=== PATIENT | female | born 1950 | race Caucasian/White ===

== ENCOUNTER 2019-03-15 14:10 | Inpatient (IN) | payer OTHER, SELFPAY ==
[2019-03-15] VITALS (28 sets, daily range): BP systolic 102–119; BP diastolic 54–67; PULSE 78–95; RESP 16–18; TEMP 36.6; O2SAT 94–100
--- NOTE | 2019-03-15 14:30 | ED.GENADUL_ITS ---
Discharge Plan Disposition Patient Disposition: [facility] INPATIENT Condition: Stable Discharge Details Chief Complaint: GI Bleed Clinical Impression: Melena, Acute anemia, Dizziness, Dyspnea on exertion Admit Date/Time: 03/17/19 09:41 Admit Provider: Rafia Siddiqui Attending Provider: Rafia Siddiqui Primary Care Provider: Huy Covarrubias ED Provider: Jade Dhaliwal Discharge Data Discharge Date/Time-TO BE ENTERED AT DEPARTURE: 03/15/19 20:20 Medical Decision Making <Debra Wild MD - Last Filed: 03/29/19 14:21> Mirella Dueñas is a 68-year-old woman who presented to the emergency department with jaw presyncope today, also with black tarry stool. On exam patient is very well and nontoxic appearing. Benign cardiopulmonary exam, benign abdominal exam. Rectal exam shows black solid stool that is Hemoccult positive. Concern for presyncope secondary to anemia versus dehydration versus arrhythmia versus metabolic/lyte derangement versus other. Doubt ACS, PE. Exam/history is not consistent with acute aortic etiology, sepsis, bacterial infectious etiology. Plan for EKG, chest x-ray, screening labs, IV, telemetry. Hemoglobin 11.9. Plan for 4-hour repeat. Pt reports feeling well and in her u [facility] state of health. No lightheadedness or other symptoms, though did have black formed stool with bowel movement in ED. D-dimer with slight elevation after age adjustment, but given low suspicion for PE and more likely etiology of lightheadedness plan to hold CT for now. Pt signed out to Dr. Dhaliwal at time of shift change with repeat Hgb, EKG, reassessment and dispo pending. Medical Records Medical records reviewed: Yes I reviewed the patient's medical records. Imaging Data Radiologic Study: Attestation: I personally reviewed and interpreted this imaging study as follows: My impression: CLINICAL HISTORY: 68 years old, female; Other: Pre-syncope TECHNIQUE: Imaging protocol: XR of the chest, 2 views. COMPARISON: No relevant prior studies available. FINDINGS: Lungs: Unremarkable. No consolidation. Pleural space: Unremarkable. No pleural effusion. No pneumothorax. Heart/Mediastinum: Unremarkable. No cardiomegaly. Bones/joints: Degenerative changes in the spine. Left rib fractures, healed. IMPRESSION: Degenerative changes in the spine. Left rib fractures, healed. Lab Data Lab results reviewed: Yes I reviewed the patient's lab results. Laboratory Tests Range/Units 03/15/19 03/15/19 03/15/19 14:43 14:43 14:43 WBC (4.4-10.8) k/cumm 10.24 RBC (4.00-5.20) m/cumm 3.96 L Hgb (12.0-15.5) g/dL 11.9 L Hct (36.0-46.0) % 36.2 MCV (80-95) fL 91.4 MCH (27.0-33.0) pg 30.1 MCHC (32.0-36.0) g/dL 32.9 RDW (11.7-14.6) % 13.7 Plt Count (130-400) x1000/uL 455 H MPV (8.0-11.0) fL 8.9 PT (9.3-11.0) sec 9.7 INR (0.9-1.1) 1.0 D-Dimer (<500) ng/mlFEU Sodium (136-145) mmol/L 141 Potassium (3.5-5.1) mmol/L 4.4 Chloride (98-107) mmol/L 105 Carbon Dioxide (21.0-32.0) mmol/L 23.3 Anion Gap (3-11) mmol/L 12.7 H BUN (7-18) mg/dL 38 H Creatinine (0.55-1.02) mg/dL 0.64 Estimated GFR/1.73 m2 (mL/min/1.73m2) >= 60.00 Glucose (70-100) mg/dL 95 Calcium (8.5-10.1) mg/dL 9.9 Total Bilirubin (0.2-1.0) mg/dL 0.4 AST (15-37) U/L 11 L ALT (12-78) U/L 24 Alkaline Phosphatase (46-116) U/L 97 Troponin I (0.00-0.06) ng/mL Total Protein (6.4-8.2) g/dL 7.1 Albumin (3.4-5.0) g/dL 3.9 TSH (0.358-3.74) uIU/mL Patient ABO/Rh Antibody Screen Range/Units 03/15/19 03/15/19 03/15/19 14:43 14:43 14:43 WBC (4.4-10.8) k/cumm RBC (4.00-5.20) m/cumm Hgb (12.0-15.5) g/dL Hct (36.0-46.0) % MCV (80-95) fL MCH (27.0-33.0) pg MCHC (32.0-36.0) g/dL RDW (11.7-14.6) % Plt Count (130-400) x1000/uL MPV (8.0-11.0) fL PT (9.3-11.0) sec INR (0.9-1.1) D-Dimer (<500) ng/mlFEU 717 H Sodium (136-145) mmol/L Potassium (3.5-5.1) mmol/L Chloride (98-107) mmol/L Carbon Dioxide (21.0-32.0) mmol/L Anion Gap (3-11) mmol/L BUN (7-18) mg/dL Creatinine (0.55-1.02) mg/dL Estimated GFR/1.73 m2 (mL/min/1.73m2) Glucose (70-100) mg/dL Calcium (8.5-10.1) mg/dL Total Bilirubin (0.2-1.0) mg/dL AST (15-37) U/L ALT (12-78) U/L Alkaline Phosphatase (46-116) U/L Troponin I (0.00-0.06) ng/mL < 0.05 Total Protein (6.4-8.2) g/dL Albumin (3.4-5.0) g/dL TSH (0.358-3.74) uIU/mL 2.21 Patient ABO/Rh O Negative Antibody Screen Negative <Jade Dhaliwal DO - Last Filed: 03/16/19 00:21> 1800 -- Please see Dr. Debra Wild's note for initial presentation, exam and plan. Case endorsed to follow-up on 4-hour hemoglobin and EKG. 1914 --Hemoglobin dropped from 11.9 to 10.1. Patient admitted to feeling weak and fatigued upon going to the bathroom. She is hemodynamically stable. EKG noted a rate of 77, sinus with no acute ST-T wave ischemic changes. Will admit for repeat hemoglobin and likely endoscopy. 1930 --Case discussed with Dr. Siddiqui -accepts patient for admission. Medical Records Medical records reviewed: Yes I reviewed the patient's medical records. Lab Data Lab results reviewed: Yes I reviewed the patient's lab results. Laboratory Tests Range/Units 03/15/19 03/15/19 03/15/19 14:43 14:43 14:43 WBC (4.4-10.8) k/cumm 10.24 RBC (4.00-5.20) m/cumm 3.96 L Hgb (12.0-15.5) g/dL 11.9 L Hct (36.0-46.0) % 36.2 MCV (80-95) fL 91.4 MCH (27.0-33.0) pg 30.1 MCHC (32.0-36.0) g/dL 32.9 RDW (11.7-14.6) % 13.7 Plt Count (130-400) x1000/uL 455 H MPV (8.0-11.0) fL 8.9 PT (9.3-11.0) sec 9.7 INR (0.9-1.1) 1.0 D-Dimer (<500) ng/mlFEU Sodium (136-145) mmol/L 141 Potassium (3.5-5.1) mmol/L 4.4 Chloride (98-107) mmol/L 105 Carbon Dioxide (21.0-32.0) mmol/L 23.3 Anion Gap (3-11) mmol/L 12.7 H BUN (7-18) mg/dL 38 H Creatinine (0.55-1.02) mg/dL 0.64 Estimated GFR/1.73 m2 (mL/min/1.73m2) >= 60.00 Glucose (70-100) mg/dL 95 Calcium (8.5-10.1) mg/dL 9.9 Total Bilirubin (0.2-1.0) mg/dL 0.4 AST (15-37) U/L 11 L ALT (12-78) U/L 24 Alkaline Phosphatase (46-116) U/L 97 Troponin I (0.00-0.06) ng/mL Total Protein (6.4-8.2) g/dL 7.1 Albumin (3.4-5.0) g/dL 3.9 TSH (0.358-3.74) uIU/mL Patient ABO/Rh Antibody Screen Range/Units 03/15/19 03/15/19 03/15/19 14:43 14:43 14:43 WBC (4.4-10.8) k/cumm RBC (4.00-5.20) m/cumm Hgb (12.0-15.5) g/dL Hct (36.0-46.0) % MCV (80-95) fL MCH (27.0-33.0) pg MCHC (32.0-36.0) g/dL RDW (11.7-14.6) % Plt Count (130-400) x1000/uL MPV (8.0-11.0) fL PT (9.3-11.0) sec INR (0.9-1.1) D-Dimer (<500) ng/mlFEU 717 H Sodium (136-145) mmol/L Potassium (3.5-5.1) mmol/L Chloride (98-107) mmol/L Carbon Dioxide (21.0-32.0) mmol/L Anion Gap (3-11) mmol/L BUN (7-18) mg/dL Creatinine (0.55-1.02) mg/dL Estimated GFR/1.73 m2 (mL/min/1.73m2) Glucose (70-100) mg/dL Calcium (8.5-10.1) mg/dL Total Bilirubin (0.2-1.0) mg/dL AST (15-37) U/L ALT (12-78) U/L Alkaline Phosphatase (46-116) U/L Troponin I (0.00-0.06) ng/mL < 0.05 Total Protein (6.4-8.2) g/dL Albumin (3.4-5.0) g/dL TSH (0.358-3.74) uIU/mL 2.21 Patient ABO/Rh O Negative Antibody Screen Negative Range/Units 03/15/19 18:30 WBC (4.4-10.8) k/cumm RBC (4.00-5.20) m/cumm Hgb (12.0-15.5) g/dL 10.1 L Hct (36.0-46.0) % 30.7 L MCV (80-95) fL MCH (27.0-33.0) pg MCHC (32.0-36.0) g/dL RDW (11.7-14.6) % Plt Count (130-400) x1000/uL MPV (8.0-11.0) fL PT (9.3-11.0) sec INR (0.9-1.1) D-Dimer (<500) ng/mlFEU Sodium (136-145) mmol/L Potassium (3.5-5.1) mmol/L Chloride (98-107) mmol/L Carbon Dioxide (21.0-32.0) mmol/L Anion Gap (3-11) mmol/L BUN (7-18) mg/dL Creatinine (0.55-1.02) mg/dL Estimated GFR/1.73 m2 (mL/min/1.73m2) Glucose (70-100) mg/dL Calcium (8.5-10.1) mg/dL Total Bilirubin (0.2-1.0) mg/dL AST (15-37) U/L ALT (12-78) U/L Alkaline Phosphatase (46-116) U/L Troponin I (0.00-0.06) ng/mL Total Protein (6.4-8.2) g/dL Albumin (3.4-5.0) g/dL TSH (0.358-3.74) uIU/mL Patient ABO/Rh Antibody Screen ECG Data Attestation: I personally reviewed and interpreted this ECG (s) as follows: Interpretation: rate of 77, sinus, no acute ST elevation or depression. QTc 459. QRS 92. HPI <Debra Wild MD - Last Filed: 03/29/19 14:21> General Mode of arrival: ambulatory . Date/Time Provider Initiated Documentation: 03/15/19 14:30 . Limitations to Documentation: no limitations . Information obtained by: patient, RN notes reviewed and old records reviewed . HPI Narrative: Mirella Dueñas 68 y/o woman with out reported major medical problems presenting to the emergency department with lightheadedness and black tarry stool. Patient reports that last week she had several episodes of vertigo while lying down. She has not had vertigo in the past. Patient reports that this seems to have resolved, however this morning she felt very lightheaded when changing position from sitting to standing. Patient reports that she had one episode of black tarry stool this morning. No history of similar bowel movements in the past, no recent diarrhea, bowel movements normal up until today. Patient reports that she has been taking aspirin 325 mg daily and meloxicam daily, but did not take either this morning after the bowel movement. Has been eating and drinking as usual. No recent illness. Denies fever, vomiting, shortness of breath, cough, focal numbness or weakness the extremities. Related Data Home Medications Medication Instructions Recorded Confirmed Myrbetriq mg PO 03/15/19 amlodipine [Norvasc] 10 mg PO DAILY 03/15/19 03/15/19 ergocalciferol (vitamin D2) unit DAILY 03/15/19 [Vitamin D2] fluoxetine [Prozac] 60 mg PO DAILY 03/15/19 03/15/19 pantoprazole 40 mg PO BID@0730,1999 #60 tab 03/17/19 sucralfate 1 g PO QID #56 tab 03/17/19 Previous Rx's Medication Instructions Recorded pantoprazole 40 mg PO BID@0730,1999 #60 tab 03/17/19 sucralfate 1 g PO QID #56 tab 03/17/19 Allergies Allergy/AdvReac Type Severity Reaction Status Date / Time No Known Allergies Allergy Unverified 03/15/19 18:11 Review of Systems <Debra Wild MD - Last Filed: 03/29/19 14:21> Review of Systems Constitutional: denies fevers Eyes: denies eye pain ENT: denies facial pain, dental pain, sore throat Cardiovascular: denies chest pain, edema, reports lightheadedness Respiratory: denies SOB, cough GI: denies abdominal pain, vomiting, diarrhea, reports black stool : denies flank pain MSK: denies back pain, neck pain, arthralgias, myalgias Skin: denies rash Neuro: denies headaches, numbness, weakness, reports vertigo last week resolved now for several days PFSH <Debra Wild MD - Last Filed: 03/29/19 14:21> Medical History Hyperlipidemia (Acute) Hypertension (Chronic) Menopausal depression (Acute) Stress incontinence (Acute) Torn meniscus (Acute) Surgical History H/O colonoscopy (Chronic) H/O hysterectomy with oophorectomy (Acute) H/O neck surgery (Acute) History of bilateral carpal tunnel release (Acute) History of cataract surgery (Chronic) S/P right knee arthroscopy (Acute) Family History Father Heart disease Sister Heart disease Hyperlipidemia Mother Non Hodgkin's lymphoma, stage IA Social History Smoking/Tobacco Use Status: Never Alcohol Intake: never Drug use: Never Substance use type: does not use Household members: spouse Number of Children: 3 Do you feel safe at home: Yes Exam <Debra Wild MD - Last Filed: 03/29/19 14:21> Narrative Exam Narrative: Constitutional: well and [id number]-gzmbxiyno, pleasant, conversing normally HENT: head atraumatic/normocephalic/normal inspection, mucous membranes moist Eyes: conjunctiva normal, sclera normal, pupils 3mm b/l Neck: no stridor, normal ROM, trachea midline Chest: normal inspection Resp: normal work of breathing, LCTAB Cardio: normal rate, normal rhythm, no murmur appreciated GI: abdomen soft, non-tender, non-distended, rectal exam with formed stool in vault, hemoccult positive, rectal exam otherwise normal Back: normal inspection, no rash Skin: warm, dry, normal color, no rash Neuro: alert, not altered, grossly non-focal, normal tone Ext: no edema Psych: normal mood, normal affect, normal behavior Sign Out <Debra Wild MD - Last Filed: 03/29/19 14:21> Sign Out Data: Sign Out Comment: Patient signed out to Dr. Dhaliwal at time of shift change with EKG, repeat hemoglobin, reassessment, dispo pending. Last updated by Debra Wild MD at 03/15/19 18:12
[2019-03-15 15:07] LABS: HCT 36.2 % (36.0-46.0); HGB 11.9 g/dL (12.0-15.5); Mean Corp. HGB Concentration 32.9 g/dL (32.0-36.0); Mean Corpuscular Hemoglobin 30.1 pg (27.0-33.0); Mean Corpuscular Volume 91.4 fL (80-95); Mean Platelet Volume 8.9 fL (8.0-11.0); Platelet Count 455 x1000/uL (130-400); RBC 3.96 m/cumm (4.00-5.20); RBC Distribution Width 13.7 % (11.7-14.6); White Blood Cell Count 10.24 k/cumm (4.4-10.8)
[2019-03-15 15:14] LABS: Prothrombin Time 9.7 sec (9.3-11.0)
[2019-03-15 15:29] LABS: ALT 24 U/L (12-78); AST 11 U/L (15-37); Albumin 3.9 g/dL (3.4-5.0); Alkaline Phosphatase 97 U/L (46-116); Anion Gap 12.7 mmol/L (3-11); BUN 38 mg/dL (7-18); Bilirubin, Total 0.4 mg/dL (0.2-1.0); CO2 23.3 mmol/L (21.0-32.0); CREATININE 0.64 mg/dL (0.55-1.02); Calcium 9.9 mg/dL (8.5-10.1); Chloride 105 mmol/L (98-107); Glucose 95 mg/dL (70-100); Potassium 4.4 mmol/L (3.5-5.1); Sodium 141 mmol/L (136-145); Total Protein 7.1 g/dL (6.4-8.2)
--- NOTE | 2019-03-15 15:29 | DI.RAD_ITS ---
SYMPTOM/DIAGNOSIS: PRE SYNCOPE FRONTAL AND LATERAL CHEST: No priors. Heart size and pulmonary vasculature are within normal limits. The lungs are clear. No effusions or pneumothoraces are identified. There are old healed left rib fractures. Degenerative changes are seen in the spine. IMPRESSION: No acute pulmonary process.
[2019-03-15 16:33] LABS: TSH (W/Ref FT4) 2.21 uIU/mL (0.358-3.74)
[2019-03-15 16:35] LABS: Troponin I < 0.05 ng/mL (0.00-0.06)
[2019-03-15 16:46] LABS: D-Dimer 717 ng/mlFEU (<500)
--- NOTE | 2019-03-15 17:26 | DI.VRAD_ITS ---
EXAM: XR Chest, 2 Views EXAM DATE/TIME: 03/15/2019 4:53 PM CLINICAL HISTORY: 68 years old, female; Other: Pre-syncope TECHNIQUE: Imaging protocol: XR of the chest, 2 views. COMPARISON: No relevant prior studies available. FINDINGS: Lungs: Unremarkable. No consolidation. Pleural space: Unremarkable. No pleural effusion. No pneumothorax. Heart/Mediastinum: Unremarkable. No cardiomegaly. Bones/joints: Degenerative changes in the spine. Left rib fractures, healed. IMPRESSION: Degenerative changes in the spine. Left rib fractures, healed. Dictated and Authenticated by: Evelyn Brown MD. Ordering:LOIS Richardson MD
--- NOTE | 2019-03-15 18:00 | NUR.NOTE ---
Addendum entered by Julia Barrera RN 03/15/19 19:38: pt resting in bed, no signs of distress. VSS will continue to monitor Original Note: Nursing Note:
[2019-03-15 18:32] LABS: HCT 30.7 % (36.0-46.0); HGB 10.1 g/dL (12.0-15.5)
--- NOTE | 2019-03-15 19:38 | NUR.NOTE ---
Nursing Note: pt resting in bed, no signs of distress. VSS. pt states that she has had one more black BM since admission to ER
[2019-03-16] VITALS (18 sets, daily range): BP systolic 90–124; BP diastolic 38–72; PULSE 80–97; RESP 16–18; TEMP 36.2–37; O2SAT 93–99
[2019-03-16] MEDS: Normal Saline Flush 10 ML SYR IVP ×2 (04:35→16:45)
[2019-03-16] MEDS: Normal Saline 1,000 ML 1000 ML IV (04:35)
[2019-03-16] MEDS: Pantoprazole 40 MG VIAL IVP ×2 (04:35→16:45)
[2019-03-16 05:06] LABS: HCT 29.4 % (36.0-46.0); HGB 9.6 g/dL (12.0-15.5)
--- NOTE | 2019-03-16 05:16 | HPE_ITS ---
Date of service: 03/16/19 Time of Service: 05:18 Assessment and Plan (1) GI bleed: Current visit: Yes Status: Chronic A\\ 68 year old female with weakness and SOB on exertion x 1 week. Had several black stools yesterday. Hgb has droped from 11.9 on admission to 9.6 P\\ EGD under sedation. If no bleeding from stomach then will prep for Colonoscopy tomorrow Risks, benefits and complications reviewed. Complications include but are not limited to bleeding, pain, perforation, sore throat, injury to the uvula, and adverse reaction to the medications. Questions were entertained and answered to her satisfaction and she wished to proceed. No guarantees were given or implied. Qualifiers: GI bleed type/associated pathology: melena Qualified Code(s): K92.1 - Melena History of Present Illness Narrative: Dizzy spells for about 1week and shortness of breath upon Exertion. yesterday worse when walking her dog. [place] her legs were weak. Had a couple of small black stools. tried to see a PCP, patient is here from [place] was sent to ER. Has never had anything like this before. Has had heart burn off and on lately. Bought Pepcid and has been taking that as needed. Is on ASA daily and Meloxicam. 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 Was taking Ibuprofen prior to beeing switched over to Meloxicam. Review of Systems Constitutional Reports weakness Eyes Denies change in vision Cardiovascular Denies chest pain, Denies chest pain at rest, Denies chest pain with activity, Denies irregular heart rhythm, Denies palpitations, Denies dyspnea and Reports dyspnea on exertion Respiratory Denies cough, Denies dyspnea and Reports dyspnea on exertion Gastrointestinal Reports as per HPI Neurologic Reports weakness Endocrine Denies cold intolerance, Denies heat intolerance and Denies palpitations Hematologic/Lymphatic Denies easy bleeding, Denies easy bruising and Denies lymphadenopathy [facility] Medical History (Updated 03/16/19 @ 06:13 by Rafia Siddiqui MD) Hyperlipidemia (Acute) Hypertension (Chronic) Menopausal depression (Acute) Stress incontinence (Acute) Torn meniscus (Acute) Surgical History (Updated 03/16/19 @ 05:43 by Rafia Siddiqui MD) H/O colonoscopy (Chronic) H/O hysterectomy with oophorectomy (Acute) H/O neck surgery (Acute) History of bilateral carpal tunnel release (Acute) History of cataract surgery (Chronic) S/P right knee arthroscopy (Acute) Family History (Updated 03/16/19 @ 05:46 by Rafia Siddiqui MD) Father Heart disease Sister Heart disease Hyperlipidemia Mother Non Hodgkin's lymphoma, stage IA Social History (Updated 03/16/19 @ 05:47 by Rafia Siddiqui MD) Smoking/Tobacco Use Status: Never Alcohol Intake: never Drug use: Never Substance use type: does not use Household members: spouse Number of Children: 3 Do you feel safe at home: Yes Meds Home Medications Medication Instructions Recorded Confirmed Type amlodipine [Norvasc] 10 mg PO DAILY 03/15/19 03/15/19 History aspirin 325 mg DAILY 03/15/19 03/15/19 History ergocalciferol (vitamin D2) unit DAILY 03/15/19 History [Vitamin D2] fluoxetine [Prozac] 60 mg PO DAILY 03/15/19 03/15/19 History meloxicam 7.5 mg PO DAILY 03/15/19 03/15/19 History mirabegron [Myrbetriq] mg PO 03/15/19 History Allergies Allergy/AdvReac Type Severity Reaction Status Date / Time No Known Allergies Allergy Unverified 03/15/19 18:11 Exam Const General: cooperative, comfortable and no acute distress Orientation: alert and oriented x3 HENMT Head: normocephalic and atraumatic Eyes Pupils: PERRL Resp Effort & Inspection: normal respiratory effort Auscultation: clear to auscultation bilaterally Cardio Rate: regular rate Rhythm: regular rhythm Heart Sounds: no gallops, no murmurs and no rubs GI Inspection: normal to inspection Palpation: soft, no hepatosplenomegaly and nontender Auscultation: normal bowel sounds Results Labs : 03/16/19 04:45 03/15/19 14:43 Laboratory Results - last 24 hr 03/15/19 03/15/19 03/15/19 14:43 14:43 14:43 WBC 10.24 RBC 3.96 L Hgb 11.9 L Hct 36.2 MCV 91.4 MCH 30.1 MCHC 32.9 RDW 13.7 Plt Count 455 H MPV 8.9 PT 9.7 INR 1.0 D-Dimer Sodium 141 Potassium 4.4 Chloride 105 Carbon Dioxide 23.3 Anion Gap 12.7 H BUN 38 H Creatinine 0.64 Estimated GFR/1.73 m2 >= 60.00 Glucose 95 Calcium 9.9 Total Bilirubin 0.4 AST 11 L ALT 24 Alkaline Phosphatase 97 Troponin I Total Protein 7.1 Albumin 3.9 TSH Patient ABO/Rh Antibody Screen 03/15/19 03/15/19 03/15/19 14:43 14:43 14:43 WBC RBC Hgb Hct MCV MCH MCHC RDW Plt Count MPV PT INR D-Dimer 717 H Sodium Potassium Chloride Carbon Dioxide Anion Gap BUN Creatinine Estimated GFR/1.73 m2 Glucose Calcium Total Bilirubin AST ALT Alkaline Phosphatase Troponin I < 0.05 Total Protein Albumin TSH 2.21 Patient ABO/Rh O Negative Antibody Screen Negative 03/15/19 03/16/19 03/16/19 18:30 04:28 04:45 WBC Cancelled RBC Cancelled Hgb 10.1 L Cancelled 9.6 L Hct 30.7 L Cancelled 29.4 L MCV Cancelled MCH Cancelled MCHC Cancelled RDW Cancelled Plt Count Cancelled MPV Cancelled PT INR D-Dimer Sodium Potassium Chloride Carbon Dioxide Anion Gap BUN Creatinine Estimated GFR/1.73 m2 Glucose Calcium Total Bilirubin AST ALT Alkaline Phosphatase Troponin I Total Protein Albumin TSH Patient ABO/Rh Antibody Screen Last Vital Signs Temp 97.3 F L 03/16/19 04:24 Pulse 97 H 03/16/19 04:24 Resp 17 03/16/19 04:24 BP 91/56 L 03/16/19 04:24 Pulse Ox 98 03/16/19 04:24
[2019-03-16] MEDS: Normal Saline 1,000 ML 150 ML IV ×2 (05:44→11:27)
--- NOTE | 2019-03-16 09:30 | PDOC.CMIN ---
Care Management Initial Assess REASON FOR HOSPITALIZATION:: GI bleed, melena, anemia, HEMPHILL, dizziness. PAST MEDICAL HISTORY/PAST SURGICAL HISTORY:: Medical: hyperlipidemia, HTN, menopausal depression, stress incontinence, torn meniscus. Surgical: colonoscopy, hysterectomy and oophorectomy, neck surgery, bilateral carpal tunnel release, cataract surgery, R knee arthroscopy. PREVIOUS FUNCTIONAL STATUS/SOCIAL/FAMILY SUPPORTS:: Mirella is a 68 yo woman who is currently staying with her Michael at a camp in [facility] which they rent from a friend during the michael. They live in their home in [place] the rest of the year. She is retired and is usually active and independent. They have 3 adult daughters whgo live in [place]. 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 CURRENT FUNCTIONAL STATUS:: She is up in room independently when CM enters. States she is having EGD this afternoon. She easily engages in discussion re plans. ADVANCE DIRECTIVES:: She has a document at home in [place] and Michael is agent. She has all of this information in a folder that she neglected to bring with her to [place]. Has patient been provided with information about the portal?: Yes Did the patient sign up for the portal?: No CODE STATUS:: Full Code INSURANCE COVERAGE / FINANCIAL ISSUES:: Medicare. [facility] CURRENT HOME/COMMUNITY SERVICES/EQUIPMENT:: No current services or equipment used PRIMARY CARE PHYSICIAN:: No local primary MD. She does have PCP in [place]. She actually went to the clinic in [place] when she got sick and they sent her to [facility]. If she did need to have a [place] PCP, she would try to establish at [facility], but at this point, she plans to follow-up with Dr Siddiqui as directed, and see her PCP in [place] when she goes home on April 16. POTENTIAL DISCHARGE NEEDS:: Will need follow-up with Dr Siddiqui as directed. PATIENT/FAMILY EDUCATION NEEDS:: Review d/c instructions re meds and activity levels. Review Ask me Now questions. ANTICIPATED BARRIERS TO DISCHARGE:: none identified TRANSPORTATION:: via car with . PLAN:: d/c home as per MD, no services anticipated.
--- NOTE | 2019-03-16 10:20 | PHARADMIT ---
Admission Pharmacy Clinical Review GI BLEED, MELENA, ACUTE ANEMIA, HEMPHILL, DIZZINESS Code Status Full Code Current Weight 89.811 kg Renally Cleared and Narrow Therapeutic Index Meds CRCL ~59ML/MIN QTc Value / Action Taken 459 BP Control, Fever 100/58 AFEBRILE Electrolytes reviewed OK DVT Prophylaxis NO Opiate Usage / Scheduled Bowel Regimen Ordered NO Plt/SCr for Heparin / Enoxaparin 455/0.64 INR for Warfarin 1.0 H/H stable, WBC/Bands 9.6/29.4 WBC 10.24 Antibiotic appropriateness NA Cultures and Sensitivities NA Surgical ABX d/c within 24 hr NA DM control / Insulin Dosing NA Heart Failure (Check EF%) (NATASHA's, B-Block, Diuretics) NA IV to PO Switch Home Meds Reviewed Home Meds Not Ordered amlodipine [Norvasc] 10 mg PO DAILY aspirin 325 mg DAILY ergocalciferol (vitamin D2) [Vitamin D2] unit DAILY fluoxetine [Prozac] 60 mg PO DAILY meloxicam 7.5 mg PO DAILY mirabegron [Myrbetriq] mg PO Comments
--- NOTE | 2019-03-16 11:13 | BOWEL_PTH ---
PATIENT: YAZAN DONNELLY LOC: U#:[id number] AGE/SX: 68/F ROOM: [id number] RE03/17/[address]: Rafia Siddiqui MD : 1950 BED: A DIS: 03/19/2019 SPEC #: [id number] RECD: 03/16/19 13:00 STATUS: MARIZOL REQ #: [id number] VAIBHAV: 03/16/19 11:[address]: Rafia Siddiqui DEPT: Surgical Specimen RECD BY: Briana Freeman ENTERED: 03/16/19 13:01 SP TYPE: Bowel OTHR DR: No Local Tissues: 1 - BIOPSY BOWEL Procedures: GROSS AND MICRO LEVEL 4 Comments: [id number]
--- NOTE | 2019-03-16 11:37 | W.PM.ENDDOP ---
Date of service: 03/16/19 Time of Service: 11:37 Endoscopy Report DATE OF PROCEDURE: 03/16/19 PRE-OP DIAGNOSIS: GI Bleed POST-OP DIAGNOSIS: same (Duodenal ulcers x 2 with clot) PROCEDURE: EGD with bx and cautery SURGEON: Rafia Siddiqui ANESTHESIA: other (General/ ASA 2/ Nori Ovalle CRNA) ESTIMATED BLOOD LOSS: 5 PATHOLOGY: other (ulcer bx) COMPLICATIONS: None DISPOSITION: PACU INDICATIONS: Mrs. Dueñas is a pleasant 68 year old admitted last night with hx of melena and symptomatic anemia. EGD was recommended. Risks, benefits and complications have been reviewed. Complications include but are not limited to bleeding, pain, perforation, sore throat, aspiration, and adverse reaction to the medications. Questions were entertained and answered to their satisfaction and they wished to proceed. No guarantees were given or implied. FINDINGS: 2 large ulcers in the 1st portion of the duodenum. One ulcer had a clot. Clot was washed away. No bleeding was noted and no vessel was visualized PROCEDURE DESCRIPTION: After informed consent was obtained the patient was take to the procedure room and placed in a supine position. Monitors were applied and a time out was done. The patients name, date of , procedure type, allergies to medications and metal in their body was reviewed. A bite block was placed and the patient was sedated. Once sedated and comfortable the gastroscope was advanced through the oropharynx which was grossly normal into the esophagus. The proximal, mid and distal esophagus were normal. The scope was advanced into the stomach and through the pylorus into the 3rd portion of the duodenum. The 3rd portion of the duodenum was noted to be normal. At the junction of the 1st and 2nd portion of the duodenum 2 large ulcers were noted. One ulcer had a clot on it. The clot was washed away and no active bleeding was noted. No vessel was visualized. Biopsies were done of the ulcers and the biopsy sites were gently cauterized. No bleeding was noted. The scope was retracted back into the stomach which was normal. There were no ulcers and no inflammation. The scope was retroflexed. The cardia and fundus were noted to be normal. There was no hiatal hernia noted. The scope was retracted back into the esophagus. The Z line was regular. The GE junction was at 35 cm. The scope was removed and the patient was woken up and taken back to [facility] in stable condition. Follow up: Will place on BID Protonix and Carafate. Will check H/H q8H. If stable tomorrow will discharge home. Patient should follow up with me in 2 weeks or her PCP if she goes back to [place]. She should have another EGD in 3 months.
[2019-03-16 12:26] LABS: HCT 27.1 % (36.0-46.0); HGB 8.8 g/dL (12.0-15.5)
--- NOTE | 2019-03-16 15:44 | CHAPLAIN ---
Mirella was resting in bed when I visited. She is from [place] and up here staying at a camp for two months. Her is with her. 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 Mirella easily engaged in conversation and seems to be comfortable being here.
[2019-03-16] MEDS: Sucralfate 1 GM TAB PO ×2 (16:44→21:06)
[2019-03-16 20:11] LABS: HGB 7.2 g/dL (12.0-15.5)
[2019-03-16] MEDS: Normal Saline 1,000 ML 75 ML IV (21:07)
[2019-03-17] VITALS (13 sets, daily range): BP systolic 105–127; BP diastolic 54–71; PULSE 65–83; RESP 14–19; TEMP 36.2–37.6; O2SAT 93–98
[2019-03-17 04:32] LABS: HCT 21.8 % (36.0-46.0)
--- NOTE | 2019-03-17 06:45 | W.PM.PROGNOT ---
Date of Service Date of service: 03/17/19 Time of Service: 06:45 Assessment and Plan (1) Anemia: Current visit: Yes Status: Chronic A\\ Acute blood loss anemia P\\ Hgb down to 7 Will transfuse 1 unit Qualifiers: Anemia type: iron deficiency Iron deficiency anemia type: other iron deficiency Qualified Code(s): D50.8 - Other iron deficiency anemias (2) Duodenal ulcer hemorrhage: Current visit: Yes Status: Acute A\\ Bleeding ulcers noted on EGD P\\ Continue on protonix 40 mg BID and Carafate Subjective Interval history since last seen: Mirella had a good night. No complaints of dizziness. BP have been better. Exam Const General: comfortable HENMT Head: normocephalic and atraumatic Eyes Pupils: PERRL Resp Effort & Inspection: normal respiratory effort Auscultation: clear to auscultation bilaterally Cardio Rate: regular rate Rhythm: regular rhythm Heart Sounds: no gallops, no murmurs and no rubs GI Inspection: normal to inspection Palpation: soft and no hepatosplenomegaly Auscultation: normal bowel sounds Objective Objective Clinical Data: Abnormal lab results 03/15/19 03/16/19 03/16/19 Range/Units 14:43 12:15 19:45 Hgb 8.8 L 7.2 L (12.0-15.5) g/dL Hct 27.1 L 22.0 L (36.0-46.0) % Crossmatch See Detail 03/17/19 Range/Units 04:20 Hgb 7.0 L (12.0-15.5) g/dL Hct 21.8 L (36.0-46.0) % Crossmatch Vital Signs Temperature 97.3 F L 03/17/19 03:44 Temperature Source Tympanic 03/17/19 03:44 Pulse 78 03/17/19 05:39 Pulse Rhythm Regular 03/16/19 23:38 Respiratory Rate 18 03/17/19 05:39 Respiratory Effort Non-Labored 03/16/19 23:38 Respiratory Depth Normal 03/16/19 23:38 Respiratory Pattern Normal 03/16/19 23:38 Blood Pressure 127/67 03/17/19 05:39 Blood Pressure Mean 59 03/15/19 19:16 Blood Pressure Position Supine 03/15/19 14:21 Pulse Oximetry 97 03/17/19 05:39 Oxygen Delivery Method Room Air 03/17/19 05:39 Oxygen Flow Rate 0 03/17/19 05:39 Pain Level 0 03/16/19 23:00 Comment 03/16/19 23:36 Intake & Output 03/16/19 03/16/19 03/17/19 11:59 23:59 11:59 Intake Total 2000 / 3240 1240 / 3240 400 / 400 Output Total 300 / 375 75 / 375 Balance 1700 / 2865 1165 / 2865 400 / 400 Intake: IV 2000 / 3000 1000 / 3000 Oral 240 / 240 400 / 400 Output: Urine 300 / 300 Stool 75 / 75 Other: Urine Color Yellow Urine Appearance Clear Urine Odor None Comment pt stated she voided, unseen by nursing Stool Occult Blood Positive Positive Stool Size Moderate Small Stool Characteristics Soft Liquid Formed Black Voiding Methods Toilet Laboratory Results WBC Cancelled 03/16/19 04:28 RBC Cancelled 03/16/19 04:28 Hgb 7.0 g/dL (12.0-15.5) L 03/17/19 04:20 Hct 21.8 % (36.0-46.0) L 03/17/19 04:20 MCV Cancelled 03/16/19 04:28 MCH Cancelled 03/16/19 04:28 MCHC Cancelled 03/16/19 04:28 RDW Cancelled 03/16/19 04:28 Plt Count Cancelled 03/16/19 04:28 MPV Cancelled 03/16/19 04:28 PT 9.7 sec (9.3-11.0) 03/15/19 14:43 INR 1.0 (0.9-1.1) 03/15/19 14:43 717 ng/mlFEU (<500) H 03/15/19 14:43 Sodium 141 mmol/L (136-145) 03/15/19 14:43 Potassium 4.4 mmol/L (3.5-5.1) 03/15/19 14:43 Chloride 105 mmol/L (98-107) 03/15/19 14:43 Carbon Dioxide 23.3 mmol/L (21.0-32.0) 03/15/19 14:43 12.7 mmol/L (3-11) H 03/15/19 14:43 BUN 38 mg/dL (7-18) H 03/15/19 14:43 0.64 mg/dL (0.55-1.02) 03/15/19 14:43 >= 60.00 (mL/min/1.73m2) 03/15/19 14:43 Glucose 95 mg/dL (70-100) 03/15/19 14:43 Calcium 9.9 mg/dL (8.5-10.1) 03/15/19 14:43 0.4 mg/dL (0.2-1.0) 03/15/19 14:43 AST 11 U/L (15-37) L 03/15/19 14:43 ALT 24 U/L (12-78) 03/15/19 14:43 97 U/L (46-116) 03/15/19 14:43 < 0.05 ng/mL (0.00-0.06) 03/15/19 14:43 7.1 g/dL (6.4-8.2) 03/15/19 14:43 3.9 g/dL (3.4-5.0) 03/15/19 14:43 TSH 2.21 uIU/mL (0.358-3.74) 03/15/19 14:43 Patient ABO/Rh O Negative 03/15/19 14:43 Antibody Screen Negative 03/15/19 14:43 Crossmatch See Detail 03/15/19 14:43
[2019-03-17] MEDS: Pantoprazole 40 MG TABCR PO ×2 (07:53→20:16)
[2019-03-17] MEDS: FLUoxetine 20 MG CAP 60 MG PO (07:53)
[2019-03-17] MEDS: Sucralfate 1 GM TAB PO ×4 (07:53→22:51)
[2019-03-17] MEDS: diphenhydrAMINE 25 MG CAP PO (09:05)
[2019-03-17] MEDS: Acetaminophen 325 MG TAB 650 MG PO (09:05)
[2019-03-17 12:45] LABS: HCT 26.8 % (36.0-46.0); HGB 8.9 g/dL (12.0-15.5)
--- NOTE | 2019-03-17 13:54 | W.PM.PROGNOT ---
Date of Service Date of service: 03/17/19 Time of Service: 13:54 Assessment and Plan (1) Duodenal ulcer hemorrhage: Current visit: Yes Status: Acute A\\ Feeling well. Vitals are stable. No more black stools P\\ Will keep one more night just because patient in in [place] and has no way of calling [phone] if there is an emergency. If Hgb stable and BP stable will D/C home tomorrow. D/C papers written. Just need order. Will sign out to Dr. Cramer. Subjective Interval history since last seen: Doing well. No dizziness. Hgb has increased nicely with 1 unit of blood. Exam Resp Effort & Inspection: normal respiratory effort Auscultation: clear to auscultation bilaterally Cardio Rate: regular rate Rhythm: regular rhythm Objective Objective Clinical Data: Abnormal lab results 03/15/19 03/16/19 03/17/19 Range/Units 14:43 19:45 04:20 Hgb 7.2 L 7.0 L (12.0-15.5) g/dL Hct 22.0 L 21.8 L (36.0-46.0) % Crossmatch See Detail 03/17/19 Range/Units 12:30 Hgb 8.9 L (12.0-15.5) g/dL Hct 26.8 L D (36.0-46.0) % Crossmatch Vital Signs Temperature 97.3 F L 03/17/19 11:42 Temperature Source Tympanic 03/17/19 11:23 Pulse 80 03/17/19 11:42 Pulse Rhythm Regular 03/17/19 07:54 Respiratory Rate 16 03/17/19 11:42 Respiratory Effort Non-Labored 03/17/19 07:54 Respiratory Depth Normal 03/17/19 07:54 Respiratory Pattern Normal 03/17/19 07:54 Blood Pressure 113/57 L 03/17/19 11:42 Blood Pressure Mean 59 03/15/19 19:16 Blood Pressure Position Supine 03/15/19 14:21 Pulse Oximetry 93 L 03/17/19 11:42 Oxygen Delivery Method Room Air 03/17/19 11:42 Oxygen Flow Rate 0 03/17/19 11:42 Pain Level 0 03/17/19 07:20 Comment 03/16/19 23:36 Intake & Output 03/16/19 03/17/1919 23:59 11:59 23:59 Intake Total 1240 / 3240 640 / 920 280 / 920 Output Total 75 / 375 Balance 1165 / 2865 640 / 920 280 / 920 Intake: IV 1000 / 3000 Oral 240 / 240 640 / 640 Blood Product 280 / 280 Rbc Leuko Reduced Unit 280 / 280 [id number] Output: Stool 75 / 75 Other: Urine Color Yellow Urine Appearance Clear Urine Odor Normal Stool Occult Blood Positive Stool Size Small Stool Characteristics Liquid Voiding Methods Toilet Laboratory Results WBC Cancelled 03/16/19 04:28 RBC Cancelled 03/16/19 04:28 Hgb 8.9 g/dL (12.0-15.5) L 03/17/19 12:30 Hct 26.8 % (36.0-46.0) L D 03/17/19 12:30 MCV Cancelled 03/16/19 04:28 MCH Cancelled 03/16/19 04:28 MCHC Cancelled 03/16/19 04:28 RDW Cancelled 03/16/19 04:28 Plt Count Cancelled 03/16/19 04:28 MPV Cancelled 03/16/19 04:28 PT 9.7 sec (9.3-11.0) 03/15/19 14:43 INR 1.0 (0.9-1.1) 03/15/19 14:43 717 ng/mlFEU (<500) H 03/15/19 14:43 Sodium 141 mmol/L (136-145) 03/15/19 14:43 Potassium 4.4 mmol/L (3.5-5.1) 03/15/19 14:43 Chloride 105 mmol/L (98-107) 03/15/19 14:43 Carbon Dioxide 23.3 mmol/L (21.0-32.0) 03/15/19 14:43 12.7 mmol/L (3-11) H 03/15/19 14:43 BUN 38 mg/dL (7-18) H 03/15/19 14:43 0.64 mg/dL (0.55-1.02) 03/15/19 14:43 >= 60.00 (mL/min/1.73m2) 03/15/19 14:43 Glucose 95 mg/dL (70-100) 03/15/19 14:43 Calcium 9.9 mg/dL (8.5-10.1) 03/15/19 14:43 0.4 mg/dL (0.2-1.0) 03/15/19 14:43 AST 11 U/L (15-37) L 03/15/19 14:43 ALT 24 U/L (12-78) 03/15/19 14:43 97 U/L (46-116) 03/15/19 14:43 < 0.05 ng/mL (0.00-0.06) 03/15/19 14:43 7.1 g/dL (6.4-8.2) 03/15/19 14:43 3.9 g/dL (3.4-5.0) 03/15/19 14:43 TSH 2.21 uIU/mL (0.358-3.74) 03/15/19 14:43 Patient ABO/Rh O Negative 03/15/19 14:43 Antibody Screen Negative 03/15/19 14:43 Crossmatch See Detail 03/15/19 14:43
--- NOTE | 2019-03-17 13:58 | DSE_ITS ---
Date of service: 03/17/19 DS: Diagnosis Discharge Diagnosis (1) Duodenal ulcer hemorrhage: Status: Acute Discharge Plan Disposition Patient Disposition: HOME Condition: Stable Discharge Details Chief Complaint: GI Bleed Clinical Impression: Melena, Acute anemia, Dizziness, Dyspnea on exertion Reason For Visit: GI BLEED Admit Date/Time: 03/15/19 19:34 Admit Provider: Rafia Sdidiqui Attending Provider: Rafia Siddiqui [facility]: Jade Dhal[facility]wal Hospital Course Hospital Course: Mrs. Dueñas is a 68-year-old female who was admitted Friday evening with a history of melena that day. The patient was dizzy. Patient was given IV fluids and watched overnight. On March 16 patient was taken down to the procedure room for an upper endoscopy. Upper endoscopy revealed 2 large duodenal ulcers one with a clot. Biopsies of the ulcers were done and the area was cauterized. No bleeding was identified at the time of the upper endoscopy. The patient's hemoglobin was checked every 8 hours. On March 17 her hemoglobin was down to 7. She was slightly symptomatic with dizziness when she got out of bed and so 1 unit of packed red blood cells was transfused. In the afternoon patient was feeling better and she had not had any more bloody stools. Due to the fact that the patient is staying at her her camp in the [place], she lives in [place], I elected to keep her 1 more night. The patient has no phone service at her [facility] and [place] and so if there is an emergency she could not dial 911. Patient is at this point eating a regular diet. She is on Protonix 40 mg twice daily and getting Carafate 4 times a day. The plan is for discharge tomorrow as long as her hgb is stable and her blood pressure is stable. She will be discharged on Protonix 40 mg twice a day as well as Carafate 4 times a day. I will see her in the office in 2 weeks. Discharge summary was dictated on as I will not be here tomorrow. I will sign out to Dr. Cramer our locum's coverage. Home Meds and New Rx's Prescriptions: New sucralfate 1 gram Tablet 1 g PO QID Qty: 56 RF: 0 pantoprazole 40 mg Tablet,Delayed Release (/Ec) 40 mg PO BID@729,1999 Qty: 60 RF: 1 Continued amlodipine [Norvasc] 10 mg Tablet 10 mg PO DAILY RF: 0 fluoxetine [Prozac] 20 mg Capsule 60 mg PO DAILY RF: 0 ergocalciferol (vitamin D2) [Vitamin D2] 50,000 unit Capsule DAILY RF: 0 Myrbetriq 50 mg Tablet Extended Release 24 Hr PO RF: 0 Discontinued aspirin 325 mg Tablet 325 mg DAILY RF: 0 meloxicam 7.5 mg Tablet 7.5 mg PO DAILY RF: 0 Discharge Instructions Instructions: Gastrointestinal Bleeding (DC), Iron Rich Diet (GEN) Referrals: Rafia Siddiqui MD [ [facility] STAFF PHYSICIAN] - (2-3 weeks please) Activity:: Activity as Tolerated Equipment/Supplies:: No Equipment Needed Diet:: high iron diet Exam Resp Effort & Inspection: normal respiratory effort Auscultation: clear to auscultation bilaterally Cardio Rate: regular rate Rhythm: regular rhythm GI Inspection: normal to inspection Palpation: soft Auscultation: normal bowel sounds DS: Data Vitals/I&O Vitals and I&O: Vital Signs Temperature 97.3 F L 03/17/19 11:42 Temperature Source Tympanic 03/17/19 11:23 Pulse 80 03/17/19 11:42 Pulse Rhythm Regular 03/17/19 07:54 Respiratory Rate 16 03/17/19 11:42 Respiratory Effort Non-Labored 03/17/19 07:54 Respiratory Depth Normal 03/17/19 07:54 Respiratory Pattern Normal 03/17/19 07:54 Blood Pressure 113/57 L 03/17/19 11:42 Blood Pressure Mean 59 03/15/19 19:16 Blood Pressure Position Supine 03/15/19 14:21 Pulse Oximetry 93 L 03/17/19 11:42 Oxygen Delivery Method Room Air 03/17/19 11:42 Oxygen Flow Rate 0 03/17/19 11:42 Pain Level 0 03/17/19 07:20 Comment 03/16/19 23:36 Intake & Output 03/16/19 03/17/19 03/17/19 23:59 11:59 23:59 Intake Total 1240 / 3240 640 / 920 280 / 920 Output Total 75 / 375 Balance 1165 / 2865 640 / 920 280 / 920 Intake: IV 1000 / 3000 Oral 240 / 240 640 / 640 Blood Product 280 / 280 Rbc Leuko Reduced Unit 280 / 280 [id number] Output: Stool 75 / 75 Other: Urine Color Yellow Urine Appearance Clear Urine Odor Normal Stool Occult Blood Positive Stool Size Small Stool Characteristics Liquid Voiding Methods Toilet Labs on day of discharge: Labs from last 24 hours 03/17/19 03/17/19 03/16/19 12:30 04:20 19:45 Hgb 8.9 L 7.0 L 7.2 L Hct 26.8 L D 21.8 L 22.0 L Patient ABO/Rh Antibody Screen Crossmatch 03/15/19 14:43 Hgb Hct Patient ABO/Rh O Negative Antibody Screen Negative Crossmatch See Detail PFSH Medical History Hyperlipidemia (Acute) Hypertension (Chronic) Menopausal depression (Acute) Stress incontinence (Acute) Torn meniscus (Acute) Surgical History H/O colonoscopy (Chronic) H/O hysterectomy with oophorectomy (Acute) H/O neck surgery (Acute) History of bilateral carpal tunnel release (Acute) History of cataract surgery (Chronic) S/P right knee arthroscopy (Acute) Family History Father Heart disease Sister Heart disease Hyperlipidemia Mother Non Hodgkin's lymphoma, stage IA Social History Smoking/Tobacco Use Status: Never Alcohol Intake: never Drug use: Never Substance use type: does not use Household members: spouse Number of Children: 3 Do you feel safe at home: Yes
[2019-03-18] MEDS: Normal Saline Flush 10 ML SYR IVP ×2 (01:13→08:21)
[2019-03-18 03:30] VITALS: BP 117/57; PULSE 78; RESP 17; TEMP 37; O2SAT 96
[2019-03-18 06:56] LABS: HCT 24.1 % (36.0-46.0); HGB 7.8 g/dL (12.0-15.5)
[2019-03-18 07:20] VITALS: BP 116/64; PULSE 80; RESP 18; TEMP 36.5; O2SAT 98
--- NOTE | 2019-03-18 08:03 | W.PM.PROGNOT ---
Date of Service Date of service: 03/18/19 Time of Service: 08:03 Assessment and Plan (1) GI bleed: Current visit: Yes Status: Chronic She may be passing old blood, but with the slight decline in her HgB, we agreed to continuing monitoring in the hospital. Will check labs at noon. Qualifiers: GI bleed type/associated pathology: melena Qualified Code(s): K92.1 - Melena Subjective Interval history since last seen: Had two small dark stools last evening and early this am. No abdominal pain Tolerating PO, no N/V No dizziness or chest pain Objective Objective Clinical Data: Abnormal lab results 03/15/19 03/17/19 03/18/19 Range/Units 14:43 12:30 06:15 Hgb 8.9 L 7.8 L (12.0-15.5) g/dL Hct 26.8 L D 24.1 L (36.0-46.0) % Crossmatch See Detail Vital Signs Temperature 98.6 F 03/18/19 03:30 Temperature Source Skin 03/18/19 03:30 Pulse 78 03/18/19 03:30 Pulse Rhythm Regular 03/17/19 23:13 Respiratory Rate 17 03/18/19 03:30 Respiratory Effort 03/17/19 23:13 Respiratory Depth Normal 03/17/19 23:13 Respiratory Pattern Normal 03/17/19 23:13 Blood Pressure 117/57 L 03/18/19 03:30 Blood Pressure Mean 59 03/15/19 19:16 Blood Pressure Position Supine 03/15/19 14:21 Pulse Oximetry 96 03/18/19 03:30 Oxygen Delivery Method Room Air 03/18/19 03:30 Oxygen Flow Rate 0 03/18/19 03:30 Pain Level 0 03/18/19 03:30 Comment 03/18/19 03:30 Intake & Output 03/17/19 03/17/19 03/18/19 11:59 23:59 11:59 Intake Total 1361.25 / 1641.25 280 / 1641.25 250 / 250 Balance 1361.25 / 1641.25 280 / 1641.25 250 / 250 Intake: IV 721.25 / 721.25 Oral 640 / 640 250 / 250 Blood Product 280 / 280 Rbc Leuko Reduced Unit 280 / 280 [id number] Other: Urine Color Yellow Urine Appearance Clear Clear Urine Odor Normal Stool Occult Blood Positive Positive Stool Size Small Small Stool Characteristics Soft Liquid Formed Green Voiding Methods Toilet Toilet Laboratory Results WBC Cancelled 03/16/19 04:28 RBC Cancelled 03/16/19 04:28 Hgb 7.8 g/dL (12.0-15.5) L 03/18/19 06:15 Hct 24.1 % (36.0-46.0) L 03/18/19 06:15 MCV Cancelled 03/16/19 04:28 MCH Cancelled 03/16/19 04:28 MCHC Cancelled 03/16/19 04:28 RDW Cancelled 03/16/19 04:28 Plt Count Cancelled 03/16/19 04:28 MPV Cancelled 03/16/19 04:28 PT 9.7 sec (9.3-11.0) 03/15/19 14:43 INR 1.0 (0.9-1.1) 03/15/19 14:43 717 ng/mlFEU (<500) H 03/15/19 14:43 Sodium 141 mmol/L (136-145) 03/15/19 14:43 Potassium 4.4 mmol/L (3.5-5.1) 03/15/19 14:43 Chloride 105 mmol/L (98-107) 03/15/19 14:43 Carbon Dioxide 23.3 mmol/L (21.0-32.0) 03/15/19 14:43 12.7 mmol/L (3-11) H 03/15/19 14:43 BUN 38 mg/dL (7-18) H 03/15/19 14:43 0.64 mg/dL (0.55-1.02) 03/15/19 14:43 >= 60.00 (mL/min/1.73m2) 03/15/19 14:43 Glucose 95 mg/dL (70-100) 03/15/19 14:43 Calcium 9.9 mg/dL (8.5-10.1) 03/15/19 14:43 0.4 mg/dL (0.2-1.0) 03/15/19 14:43 AST 11 U/L (15-37) L 03/15/19 14:43 ALT 24 U/L (12-78) 03/15/19 14:43 97 U/L (46-116) 03/15/19 14:43 < 0.05 ng/mL (0.00-0.06) 03/15/19 14:43 7.1 g/dL (6.4-8.2) 03/15/19 14:43 3.9 g/dL (3.4-5.0) 03/15/19 14:43 TSH 2.21 uIU/mL (0.358-3.74) 03/15/19 14:43 Patient ABO/Rh O Negative 03/15/19 14:43 Antibody Screen Negative 03/15/19 14:43 Crossmatch See Detail 03/15/19 14:43
[2019-03-18] MEDS: FLUoxetine 20 MG CAP 60 MG PO (08:20)
[2019-03-18] MEDS: Sucralfate 1 GM TAB PO ×4 (08:20→21:45)
[2019-03-18] MEDS: Pantoprazole 40 MG TABCR PO ×2 (08:20→21:44)
--- NOTE | 2019-03-18 11:25 | PDOC.CMPRO ---
Care Management Progress Note S/O: Mirella remains pleasant in interaction. She remains inpatient due to low H&H requiring further monitoring. CM continues to follow-no change to overall discharge plan at this time. A: 68 year old female admitted to [facility] 03/15/19 with GI Bleed, Melena, acute anemia, HEMPHILL, Dizziness, found to have gastric ulcers 03/16/19 per EGD P: Mirella will return home to her camp in [place] with her when ready per MD. She will follow up with her PCP in [place], upon returning mid-April. No additional services anticipated at this time.
[2019-03-18 11:45] VITALS: BP 106/61; PULSE 78; RESP 18; TEMP 36.1; O2SAT 95
[2019-03-18 12:27] LABS: HGB 9.2 g/dL (12.0-15.5)
--- NOTE | 2019-03-18 12:49 | W.PM.PROGNOT ---
Date of Service Date of service: 03/18/19 Time of Service: 12:50 Assessment and Plan (1) GI bleed: Current visit: Yes Status: Chronic Hgb 9.2 She had a small black stool this am Will keep until tomorrow for monitoring Qualifiers: GI bleed type/associated pathology: melena Qualified Code(s): K92.1 - Melena Objective Objective Clinical Data: Abnormal lab results 03/15/19 03/18/19 03/18/19 Range/Units 14:43 06:15 12:20 Hgb 7.8 L 9.2 L (12.0-15.5) g/dL Hct 24.1 L (36.0-46.0) % Crossmatch See Detail Vital Signs Temperature 97.0 F L 03/18/19 11:45 Temperature Source Tympanic 03/18/19 11:45 Pulse 78 03/18/19 11:45 Pulse Rhythm Regular 03/18/19 08:40 Respiratory Rate 18 03/18/19 11:45 Respiratory Effort 03/18/19 08:40 Respiratory Depth Normal 03/18/19 08:40 Respiratory Pattern Normal 03/18/19 08:40 Blood Pressure 106/61 03/18/19 11:45 Blood Pressure Mean 59 03/15/19 19:16 Blood Pressure Position Supine 03/15/19 14:21 Pulse Oximetry 95 03/18/19 11:45 Oxygen Delivery Method Room Air 03/18/19 11:45 Oxygen Flow Rate 0 03/18/19 11:45 Pain Level 0 03/18/19 03:30 Comment 03/18/19 03:30 Intake & Output 03/17/19 03/18/19 03/18/19 23:59 11:59 23:59 Intake Total 280 / 1641.25 250 / 250 Balance 280 / 1641.25 250 / 250 Intake: Oral 250 / 250 Blood Product 280 / 280 Rbc Leuko Reduced Unit 280 / 280 [id number] Other: Urine Appearance Clear Clear Stool Occult Blood Positive Positive Stool Size Small Moderate Stool Characteristics Soft Soft Formed Formed Voiding Methods Toilet Laboratory Results WBC Cancelled 03/16/19 04:28 RBC Cancelled 03/16/19 04:28 Hgb 9.2 g/dL (12.0-15.5) L 03/18/19 12:20 Hct 24.1 % (36.0-46.0) L 03/18/19 06:15 MCV Cancelled 03/16/19 04:28 MCH Cancelled 03/16/19 04:28 MCHC Cancelled 03/16/19 04:28 RDW Cancelled 03/16/19 04:28 Plt Count Cancelled 03/16/19 04:28 MPV Cancelled 03/16/19 04:28 PT 9.7 sec (9.3-11.0) 03/15/19 14:43 INR 1.0 (0.9-1.1) 03/15/19 14:43 717 ng/mlFEU (<500) H 03/15/19 14:43 Sodium 141 mmol/L (136-145) 03/15/19 14:43 Potassium 4.4 mmol/L (3.5-5.1) 03/15/19 14:43 Chloride 105 mmol/L (98-107) 03/15/19 14:43 Carbon Dioxide 23.3 mmol/L (21.0-32.0) 03/15/19 14:43 12.7 mmol/L (3-11) H 03/15/19 14:43 BUN 38 mg/dL (7-18) H 03/15/19 14:43 0.64 mg/dL (0.55-1.02) 03/15/19 14:43 >= 60.00 (mL/min/1.73m2) 03/15/19 14:43 Glucose 95 mg/dL (70-100) 03/15/19 14:43 Calcium 9.9 mg/dL (8.5-10.1) 03/15/19 14:43 0.4 mg/dL (0.2-1.0) 03/15/19 14:43 AST 11 U/L (15-37) L 03/15/19 14:43 ALT 24 U/L (12-78) 03/15/19 14:43 97 U/L (46-116) 03/15/19 14:43 < 0.05 ng/mL (0.00-0.06) 03/15/19 14:43 7.1 g/dL (6.4-8.2) 03/15/19 14:43 3.9 g/dL (3.4-5.0) 03/15/19 14:43 TSH 2.21 uIU/mL (0.358-3.74) 03/15/19 14:43 Patient ABO/Rh O Negative 03/15/19 14:43 Antibody Screen Negative 03/15/19 14:43 Crossmatch See Detail 03/15/19 14:43
[2019-03-18 15:41] VITALS: BP 150/67; PULSE 78; RESP 18; TEMP 37.1; O2SAT 97
[2019-03-18 19:36] VITALS: BP 105/64; PULSE 74; RESP 18; TEMP 37; O2SAT 97
[2019-03-18 23:02] VITALS: BP 100/51; PULSE 81; RESP 17; TEMP 36.8; O2SAT 94
[2019-03-19 03:30] VITALS: BP 110/63; PULSE 76; RESP 18; TEMP 36; O2SAT 95
[2019-03-19 07:35] LABS: HGB 8.6 g/dL (12.0-15.5)
--- NOTE | 2019-03-19 07:45 | W.PM.PROGNOT ---
Date of Service Date of service: 03/19/19 Time of Service: 07:45 Assessment and Plan (1) Duodenal ulcer hemorrhage: Current visit: Yes Status: Acute (2) Anemia: Current visit: Yes Status: Chronic Denies any dark stools since yesterday morning. Denies any dizziness or light headedness. Taking in PO without any difficulty. P// D/C home today. Qualifiers: Anemia type: iron deficiency Iron deficiency anemia type: other iron deficiency Qualified Code(s): D50.8 - Other iron deficiency anemias Subjective Interval history since last seen: I do not even feel sick. No BMs since yesterday. She has been ambulating in the hallways independently. Denies abdominal pain, nausea, or vomiting. Exam Const General: cooperative, healthy appearing and comfortable Orientation: alert and oriented x3 Resp Effort & Inspection: normal respiratory effort, no audible wheezes and no cough Objective Objective Clinical Data: Abnormal lab results 03/18/19 03/19/19 Range/Units 12:20 06:50 Hgb 9.2 L 8.6 L (12.0-15.5) g/dL Vital Signs Temperature 36.0 C L 03/19/19 03:30 Temperature Source Tympanic 03/19/19 03:30 Pulse 76 03/19/19 03:30 Pulse Rhythm Regular 03/18/19 22:11 Respiratory Rate 18 03/19/19 03:30 Respiratory Effort Non-Labored 03/18/19 22:11 Respiratory Depth Normal 03/18/19 22:11 Respiratory Pattern Normal 03/18/19 22:11 Blood Pressure 110/63 03/19/19 03:30 Blood Pressure Mean 59 03/15/19 19:16 Blood Pressure Position Supine 03/15/19 14:21 Pulse Oximetry 95 03/19/19 03:30 Oxygen Delivery Method Room Air 03/19/19 03:30 Oxygen Flow Rate 0 03/19/19 03:30 Pain Level 0 03/19/19 03:30 Comment 03/18/19 03:30 Intake & Output 03/18/19 03/19/19 03/19/19 18:59 06:59 18:59 Intake Total 240 / 240 Balance 240 / 240 Intake: Oral 240 / 240 Other: Urine Appearance Clear Stool Occult Blood Positive Stool Size Moderate Stool Characteristics Soft Formed Laboratory Results WBC Cancelled 03/16/19 04:28 RBC Cancelled 03/16/19 04:28 Hgb 8.6 g/dL (12.0-15.5) L 03/19/19 06:50 Hct 24.1 % (36.0-46.0) L 03/18/19 06:15 MCV Cancelled 03/16/19 04:28 MCH Cancelled 03/16/19 04:28 MCHC Cancelled 03/16/19 04:28 RDW Cancelled 03/16/19 04:28 Plt Count Cancelled 03/16/19 04:28 MPV Cancelled 03/16/19 04:28 PT 9.7 sec (9.3-11.0) 03/15/19 14:43 INR 1.0 (0.9-1.1) 03/15/19 14:43 717 ng/mlFEU (<500) H 03/15/19 14:43 Sodium 141 mmol/L (136-145) 03/15/19 14:43 Potassium 4.4 mmol/L (3.5-5.1) 03/15/19 14:43 Chloride 105 mmol/L (98-107) 03/15/19 14:43 Carbon Dioxide 23.3 mmol/L (21.0-32.0) 03/15/19 14:43 12.7 mmol/L (3-11) H 03/15/19 14:43 BUN 38 mg/dL (7-18) H 03/15/19 14:43 0.64 mg/dL (0.55-1.02) 03/15/19 14:43 >= 60.00 (mL/min/1.73m2) 03/15/19 14:43 Glucose 95 mg/dL (70-100) 03/15/19 14:43 Calcium 9.9 mg/dL (8.5-10.1) 03/15/19 14:43 0.4 mg/dL (0.2-1.0) 03/15/19 14:43 AST 11 U/L (15-37) L 03/15/19 14:43 ALT 24 U/L (12-78) 03/15/19 14:43 97 U/L (46-116) 03/15/19 14:43 < 0.05 ng/mL (0.00-0.06) 03/15/19 14:43 7.1 g/dL (6.4-8.2) 03/15/19 14:43 3.9 g/dL (3.4-5.0) 03/15/19 14:43 TSH 2.21 uIU/mL (0.358-3.74) 03/15/19 14:43 Patient ABO/Rh O Negative 03/15/19 14:43 Antibody Screen Negative 03/15/19 14:43 Crossmatch See Detail 03/15/19 14:43
--- NOTE | 2019-03-19 08:16 | CMDISCH_ITS ---
LACE Index Scoring Tool - Questions: Length of Stay (in days): 4 - 6 Acuity (Admit via E.D.?): No Comorbidities: Diabetes w/o Complication E.D. Visits: 1 - Answers: Total Score: 6 Risk of Readmission: Low Risk Care Management Discharge Reason for Hospitalization: GI bleed, melena, anemia, HEMPHILL, dizziness. Discharge Plan: Mirella will return home to her camp in [place] with her when ready per MD. She will follow up with her PCP in [place], upon returning mid-April. No additional services anticipated at this time. Patient/Family Education Needs: Review discharge instructions, discuss Ask Me Three.
[2019-03-19 08:20] VITALS: BP 121/68; PULSE 68; RESP 18; TEMP 36.2; O2SAT 97
[2019-03-19] MEDS: Sucralfate 1 GM TAB PO ×2 (08:22→11:31)
[2019-03-19] MEDS: Pantoprazole 40 MG TABCR PO (08:22)
[2019-03-19] MEDS: FLUoxetine 20 MG CAP 60 MG PO (08:22)
[2019-03-19 11:45] VITALS: BP 117/71; PULSE 85; RESP 20; TEMP 36.5; O2SAT 98
== END 2019-03-19 13:22 | disposition home or self-care (01) | DRG 378 ==
LOC: ER 20:13 → MS 20:49
PROVIDERS: Student in an Organized Health Care Education/Training Program; Surgery; Admitting Provider Surgery; Emergency Provider Physician Assistant; PCP Family Medicine; Visit Provider Surgery
PROC: 0DJ68ZZ Inspection of Stomach, Via Natural or Artificial Opening Endoscopic (ICD-10-PCS; CPT 43235; principal; 2019-03-16 11:30)
DX: K92.1 Melena (principal); D62 Acute posthemorrhagic anemia; K26.4 Chronic or unspecified duodenal ulcer with hemorrhage; I10 Essential (primary) hypertension; E78.5 Hyperlipidemia, unspecified; Z67.41 Type O blood, Rh negative
CPT/HCPCS: 43250; 36415; 36430; 80053; 85027; 86850; 86900; 86901; 86920; 88305; 93005; 99219; 99231; 99232; 99235; 99238; 99239; 99285; NC; 71046; 84443; 84484; 85014; 85018; 85379; 85610; 93010; G0378; P9016

== ENCOUNTER → 2019-04-02 10:18 | Outpatient (BNVA) | payer OTHER, SELFPAY | PROVIDERS: PCP Family Medicine; Referring Provider Family Medicine; Visit Provider Surgery | DX: K26.4 Chronic or unspecified duodenal ulcer with hemorrhage (principal); I10 Essential (primary) hypertension; Z48.89 Encounter for other specified surgical aftercare | CPT/HCPCS: 99212; 99213 ==

== ENCOUNTER 2019-04-02 10:40 | Outpatient (CLI) | payer OTHER, SELFPAY ==
[2019-04-02 13:53] LABS: HCT 33.6 % (36.0-46.0); HGB 10.7 g/dL (12.0-15.5)
== END 2019-04-02 11:00 ==
PROVIDERS: PCP Family Medicine; Visit Provider Surgery
DX: K26.4 Chronic or unspecified duodenal ulcer with hemorrhage (principal)
CPT/HCPCS: 36415; 85014; 85018